=== PATIENT | male | born 1985 | race Caucasian/White ===

== ENCOUNTER → 2018-11-28 | Outpatient (CLI) | payer OTHER ==
--- NOTE | 2018-11-28 15:55 | REP ---
PARTIAL LUMBAR SPINE, THREE VIEWS: HISTORY: Puncture wound. There is no acute fracture or subluxation. The L4-5 intervertebral disc is decreased in height consistent with disc degeneration. There is no radiopaque foreign body. IMPRESSION: Degenerative change as described above. Electronically Signed by Truman Juarez MD 11/28/2018 03:58 P
== END ==
LOC: M LRY 15:18
PROVIDERS: ATTEND Nurse Practitioner Family
DX: M51.36 Other intervertebral disc degeneration, lumbar region (principal)
CPT/HCPCS: 72100; G0463